=== PATIENT | female | born 1960 | race Caucasian/White ===

== ENCOUNTER 2017-04-04 08:39 | Emergency (ER) | payer OTHER ==
[2017-04-04 08:44] VITALS: BMI 24.7
[2017-04-04 08:48] VITALS: TEMP 97.9; O2SAT 100
[2017-04-04] MEDS ORDERED: Aspirin 325 mg EC Tablets PO STA (08:59)
[2017-04-04 09:35] LABS: BASO % 0.7 % (0.0-2.0); EOS # 0.2 K/uL (0.0-0.7); EOS % 4.7 % (0.0-4.0); LYMPH # 2.1 K/uL (1.0-4.3); LYMPH % 42.4 % (20.0-40.0); MEAN CELL VOLUME 91.6 fL (81.0-99.0); MEAN CORPUSCULAR HEMOGLOBIN 30.3 pg (27.0-31.0); MEAN PLATELET VOLUME 7.8 fL (7.2-11.7); MONO # 0.3 K/uL (0.0-0.8); MONO % 5.9 % (0.0-10.0); NRBC % 0.1 % (0.0-2.0); RED CELL DISTRIBUTION WIDTH 12.8 % (11.5-14.5)
[2017-04-04 09:45] LABS: CHLORIDE 103 mmol/L (98-107)
[2017-04-04 09:46] LABS: POTASSIUM 3.8 mmol/L (3.6-5.2); SODIUM 137 mmol/L (132-148)
[2017-04-04 09:48] LABS: ALB/GLOB RATIO 1.3 (1.0-2.1); ALKALINE PHOSPHATASE 74 U/L (38-126); AST/SGOT 29 U/L (14-36); BILIRUBIN,TOTAL 0.6 mg/dL (0.2-1.3); CARBON DIOXIDE 24 mmol/L (22-30); GFR AFRICAN-AMERICAN > 60; TOTAL PROTEIN 7.8 g/dL (6.3-8.3)
[2017-04-04 09:49] LABS: ALT/SGPT 25 U/L (9-52); BLOOD UREA NITROGEN 17 mg/dL (7-17); CALCIUM 9.3 mg/dl (8.6-10.4); GLUCOSE,RANDOM 112 mg/dL (65-105)
[2017-04-04 10:15] VITALS: RESP 18
--- NOTE | 2017-04-04 10:21 | RAD ---
PROCEDURE: CHEST RADIOGRAPH, 1 VIEW HISTORY: chest pain COMPARISON: 04/30/2016 FINDINGS: LUNGS: Biapical pleural thickening. No focal infiltrate or effusion. PLEURA: No pneumothorax or pleural fluid seen. CARDIOVASCULAR: Normal. OSSEOUS STRUCTURES: No significant abnormalities. VISUALIZED UPPER ABDOMEN: Normal. OTHER FINDINGS: None. IMPRESSION: No active disease.
--- NOTE | 2017-04-04 10:35 | C.PDOC ---
History Of Present Illness 56 y/o female sent from clinic for evaluation of chest pain x4 days. Pain is sharp, left sided and nonradiating. Pt denies SOB, fever, cough, vomiting or any other complaints. Denies history of heart disease, HTN or diabetes. Chief Complaint (Nursing): Chest Pain History Per: Patient History/Exam Limitations: no limitations Onset/Duration Of Symptoms: Days Current Symptoms Are (Timing): Still Present Severity: Moderate Quality: Sharp Modifying Factors: None Alleviating Factors: None Recent travel outside of the [place]: No Past Medical History Reviewed: Historical Data, Nursing Documentation, Vital Signs Vital Signs: Last Vital Signs Temp 97.9 F 04/04/17 08:47 Pulse 80 04/04/17 11:15 Resp 18 04/04/17 11:15 BP 132/74 04/04/17 11:15 Pulse Ox 100 04/04/17 11:15 - Medical History PMH: Arthritis, Hypothyroidism Family History: States: Hypertension - Social History Hx Tobacco Use: No Hx Alcohol Use: No Hx Substance Use: No - Immunization History Hx Tetanus Toxoid Vaccination: No Hx Influenza Vaccination: Yes Hx Pneumococcal Vaccination: No Review Of Systems Except As Marked, All Systems Reviewed And Found Negative. Constitutional: Negative for: Fever Cardiovascular: Positive for: Chest Pain Respiratory: Negative for: Cough, Shortness of Breath Gastrointestinal: Negative for: Vomiting Physical Exam - Physical Exam Appears: Non-toxic, No Acute Distress Skin: Warm, Dry, No Rash Head: Atraumatic, Normacephalic Neck: Normal, Normal ROM, Supple Chest: Symmetrical, No Tenderness Cardiovascular: Rhythm Regular, No Murmur Respiratory: Normal Breath Sounds, No Rales, No Rhonchi, No Wheezing Gastrointestinal/Abdominal: Normal Exam, Soft, No Tenderness Extremity: No Pedal Edema Extremity: Bilateral: Atraumatic Neurological/Psych: Oriented x3, Normal Speech ED Course And Treatment - Laboratory Results Result Diagrams: 04/04/17 09:32 04/04/17 09:32 ECG: Interpreted By Me, Viewed By Me ECG Rhythm: Sinus Rhythm ECG Interpretation: Normal Interpretation Of ECG: Normal axis. Normal intervals. Rate From EC (BPM) O2 Sat by Pulse Oximetry: 100 (RA) Pulse Ox Interpretation: Normal - Radiology CXR: Viewed By Me, Read By Radiologist CXR Interpretation: Yes: No Acute Disease Medical Decision Making Medical Decision Making: Plan: * EKG * CXR * labs * IV fluids * aspirin Disposition - Disposition Referrals: [facility] Ernesto Ham, [Non-Staff] - Disposition: HOME/ ROUTINE Disposition Time: 10:00 Condition: GOOD Additional Instructions: Thank you for letting us take care of you today. Your provider was Dr. Yepez. You were treated for noncardiac chest pain. The emergency medical care you received today was directed at your acute symptoms. If you were prescribed any medication, please fill it and take as directed. It may take several days for your symptoms to resolve. Return to the Emergency Department if your symptoms worsen, do not improve, or if you have any other problems. Please contact your doctor or call one of the physicians/clinics you have been referred to that are listed on the Patient Visit Information form that is included in your discharge packet. Bring any paperwork you were given at discharge with you along with any medications you are taking to your follow up visit. Our treatment cannot replace ongoing medical care by a primary care provider (PCP) outside of the emergency department. Thank you for allowing the [facility] team to be part of your care today. Follow up with your doctor in 2-3 days for re-evaluation. Instructions: Noncardiac Chest Pain (ED) - Clinical Impression Clinical Impression: Non-cardiac chest pain - Scribe Statement The provider has reviewed the documentation as recorded by the Berto Villarreal Provider Attestation: All medical record entries made by the Berto were at my direction and personally dictated by me. I have reviewed the chart and agree that the record accurately reflects my personal performance of the history, physical exam, medical decision making, and the department course for this patient. I have also personally directed, reviewed, and agree with the discharge instructions and disposition.
[2017-04-04 11:16] VITALS: BP 132/74; PULSE 80
--- NOTE | 2017-04-05 14:04 | CARD ---
APPROVED REPORT EKG Measurement Heart [id number] <Conclusion> Normal sinus rhythm Normal ECG
== END 2017-04-04 11:16 | disposition home or self-care (01) ==
LOC: C.ER 08:39
DX: R07.89 Other chest pain (principal)

== ENCOUNTER 2017-05-30 07:25 | Day surgery (SDC) | payer MEDICAID ==
[2017-05-30 08:13] VITALS: BMI 25.3
[2017-05-30 08:29] VITALS: O2SAT 100
[2017-05-30] MEDS ORDERED: Propofol 10 mg/ml Inj (20 ML) ONE ×2 (10:38→10:53)
[2017-05-30] MEDS ORDERED: Phenylephrine 10 mg/ml Inj ONE (10:53)
[2017-05-30 13:41] VITALS: TEMP 97.1
[2017-05-30 14:19] VITALS: RESP 16
[2017-05-30 14:45] VITALS: BP 122/63; PULSE 85
== END 2017-05-30 12:20 | disposition home or self-care (01) ==
LOC: C.ENDO 07:25
PROVIDERS: ATTEND Internal Medicine
DX: D12.5 Benign neoplasm of sigmoid colon (principal); K57.30 Diverticulosis of large intestine without perforation or abscess without bleeding; K64.8 Other hemorrhoids
CPT/HCPCS: 45385; 88305; J2370; J2704

== ENCOUNTER 2018-05-28 06:47 | Emergency (ER) | payer MEDICAID ==
[2018-05-28 06:48] VITALS: BMI 25.3
[2018-05-28 06:56] VITALS: RESP 18
[2018-05-28] MEDS ORDERED: Sodium Chloride 0.9% 1,000 ML IV ONE (07:20)
--- NOTE | 2018-05-28 07:27 | C.PDOC ---
History Of Present Illness 57 y/o female, with PMHx of hysterectomy, presents to ED c/o diffuse abdominal pain associated with n/v/d for the last 2 days. Denies taking any medications for her symptoms. Otherwise, denies fever, chills, urinary symptoms, vaginal discharge, or vaginal bleeding. Time Seen by Provider: 05/28/18 07:16 Chief Complaint (Nursing): Abdominal Pain History Per: Patient History/Exam Limitations: no limitations Past Medical History Reviewed: Historical Data, Nursing Documentation, Vital Signs Vital Signs: Last Vital Signs Temp 98.6 F 05/28/18 06:53 Pulse 106 H 05/28/18 06:53 Resp 18 05/28/18 06:53 BP 113/77 05/28/18 06:53 Pulse Ox 99 05/28/18 07:34 - Medical History PMH: Arthritis, Diverticulitis, Hypothyroidism Denies: Chronic Kidney Disease Family History: States: Hypertension - Social History Hx Tobacco Use: No Hx Alcohol Use: No Hx Substance Use: No - Immunization History Hx Tetanus Toxoid Vaccination: No Hx Influenza Vaccination: Yes Hx Pneumococcal Vaccination: No Review Of Systems Except As Marked, All Systems Reviewed And Found Negative. Constitutional: Negative for: Fever, Chills Gastrointestinal: Positive for: Nausea, Vomiting, Abdominal Pain, Diarrhea. Negative for: Melena, Hematochezia, Hematemesis Genitourinary: Negative for: Dysuria, Frequency, Hematuria, Vaginal Discharge, Vaginal Bleeding Musculoskeletal: Negative for: Back Pain Physical Exam - Physical Exam Appears: Non-toxic, No Acute Distress Skin: Normal Color, Warm, Dry Head: Atraumatic, Normacephalic Eye(s): bilateral: Normal Inspection Oral Mucosa: Moist Neck: Normal ROM, Supple Cardiovascular: Rhythm Regular Respiratory: Normal Breath Sounds, No Rales, No Rhonchi, No Wheezing Gastrointestinal/Abdominal: Bowel Sounds, Soft, Tenderness (diffuse), No Guarding, No Rebound Back: No CVA Tenderness Extremity: Normal ROM Neurological/Psych: Oriented x3, Normal Speech ED Course And Treatment - Laboratory Results Result Diagrams: 05/28/18 07:35 05/28/18 07:35 O2 Sat by Pulse Oximetry: 99 Medical Decision Making Medical Decision Making: Impression: Abdominal pain Plan: Abd & Pelvis CT Blood work Urinalysis Pepcid, Toradol, Zofran, IV fuids 1145 am - patient state improvement. No further pain. Will discharge home to follow up with pmd within 2 days. advised to return to eR if symptoms worsens or progress Disposition Counseled Patient/Family Regarding: Studies Performed, Diagnosis - Disposition Referrals: Dudley Benitez MD [Family Provider] - Disposition: HOME/ ROUTINE Disposition Time: 11:47 Condition: IMPROVED Additional Instructions: follow up with your doctor or medical clinic within 2 days call to make an appointment continue your home medications return to ER if symptoms worsens or progress Prescriptions: Ciprofloxacin HCl [Cipro] 500 mg PO BID #20 tab Famotidine [Pepcid] 20 mg PO BID #20 tab Metronidazole [Flagyl] 500 mg PO BID #20 tablet Naproxen [Naprosyn] 500 mg PO BID PRN #16 tab PRN Reason: Pain, Moderate (4-7) Ondansetron ODT [Zofran ODT] 4 mg PO TID PRN #12 odt PRN Reason: Nausea/Vomiting Instructions: Inflammatory Bowel Disease, Acute Abdomen (Belly Pain), Adult (DC ) Forms: Gen Discharge Inst Citizen Of [place], [facility] (Citizen [place]) Print Language: SWEDISH - Clinical Impression Clinical Impression: Abdominal pain - Scribe Statement The provider has reviewed the documentation as recorded by the Scribe KP All medical record entries made by the Scribe were at my direction and personally dictated by me. I have reviewed the chart and agree that the record accurately reflects my personal performance of the history, physical exam, medical decision making, and the department course for this patient. I have also personally directed, reviewed, and agree with the discharge instructions and disposition.
[2018-05-28] MEDS ORDERED: Iohexol 240 (50 ml) ONE (07:37)
[2018-05-28] MEDS ORDERED: Sodium Chloride 0.9% 1,000 ML ONE (07:38)
[2018-05-28 07:40] LABS: BASO % 0.4 % (0.0-2.0); EOS # 0.1 K/uL (0.0-0.7); EOS % 0.8 % (0.0-4.0); HEMOGLOBIN 14.9 g/dL (11.0-16.0); LYMPH # 2.4 K/uL (1.0-4.3); LYMPH % 28.9 % (20.0-40.0); MEAN CELL VOLUME 91.1 fL (81.0-99.0); MEAN CORPUSCULAR HEMOGLOBIN 31.2 pg (27.0-31.0); MEAN CORPUSCULAR HGB CONC 34.2 g/dL (33.0-37.0); MEAN PLATELET VOLUME 8.2 fL (7.2-11.7); MONO # 0.7 K/uL (0.0-0.8); MONO % 8.2 % (0.0-10.0); NEUT # 5.2 K/uL (1.8-7.0); NEUT % 61.7 % (50.0-75.0); RBC 4.77 Mil/uL (3.80-5.20); RED CELL DISTRIBUTION WIDTH 12.7 % (11.5-14.5); WHITE BLOOD COUNT 8.4 K/uL (4.8-10.8)
[2018-05-28 07:54] LABS: SQUAMOUS EPITHIAL 1 /hpf (0-5); URINE BACTERIA RARE (<OCC); URINE BILIRUBIN NEGATIVE (NEGATIVE); URINE BLOOD NEGATIVE (NEGATIVE); URINE CLARITY Clear (Clear); URINE COLOR Yellow (YELLOW); URINE GLUCOSE (UA) NORMAL (Normal); URINE LEUKOCYTE ESTERASE NEG Leu/uL (Negative); URINE PROTEIN NEGATIVE (NEGATIVE); URINE UROBILINOGEN NORMAL mg/dL (0.2-1.0)
[2018-05-28 07:59] LABS: ALB/GLOB RATIO 1.4 (1.0-2.1); ALBUMIN 4.4 g/dL (3.5-5.0); ALT/SGPT 34 U/L (9-52); AST/SGOT 24 U/L (14-36); BLOOD UREA NITROGEN 12 mg/dL (7-17); CALCIUM 9.6 mg/dl (8.6-10.4); GFR AFRICAN-AMERICAN > 60; GFR NON-AFRICAN AMERICAN > 60; LIPASE 92 U/L (23-300)
[2018-05-28] MEDS ORDERED: Iodixanol 320 MG/ML 100 ML BOTTLE IV ONE (09:54)
--- NOTE | 2018-05-28 11:21 | CT ---
Date of service: 05/28/2018 PROCEDURE: CT Abdomen and Pelvis with contrast HISTORY: abd pain COMPARISON: Abdomen pelvis CT examination with contrast 12/10/2016. TECHNIQUE: Contrast dose: Visipaque 320, 100 cc Radiation dose: Total exam DLP = 412.08 mGy-cm. This CT exam was performed using one or more of the following dose reduction techniques: Automated exposure control, adjustment of the mA and/or kV according to patient size, and/or use of iterative reconstruction technique. FINDINGS: LOWER THORAX: Unremarkable. LIVER: Unremarkable. No gross lesion or ductal dilatation. GALLBLADDER AND BILE DUCTS: Unremarkable. PANCREAS: Unremarkable. No gross lesion or ductal dilatation. SPLEEN: Unremarkable. ADRENALS: Unremarkable. No mass. KIDNEYS AND URETERS: Unremarkable. No hydronephrosis. No solid mass. VASCULATURE: Unremarkable. No aortic aneurysm. BOWEL: The entire ileum appears thick-walled and possibly part of the distal the jejunum with mild right lower quadrant and pelvic ascites present. No free intrarenal gas. Consider segmental enteritis from potential infectious or inflammatory disease including Crohn's disease. Ischemia not completely excluded however the abdominal aorta appears well opacified as well as the superior mesenteric artery and celiac artery. Nonacute sigmoid diverticular changes are identified [id number] fecal loading is seen in various large-bowel segments. APPENDIX: Normal appendix. PERITONEUM: No free intra peritoneal gas. Ascites as discussed in bowel section. LYMPH NODES: Unremarkable. No enlarged lymph nodes. BLADDER: Unremarkable. REPRODUCTIVE: Prior hysterectomy reiterated. BONES: No acute fracture. OTHER FINDINGS: None. IMPRESSION: Extensive segmental enteritis affecting the distal jejunal through entire ileal small bowel segments with limited abdominal and pelvic ascites present. Consider infectious or inflammatory causes with ischemia not completely excluded although central arterial vascularity in the abdomen appears unremarkable overall. Nonacute sigmoid diverticulosis. Prior hysterectomy reiterated.
[2018-05-28 12:20] VITALS: BP 111/73; PULSE 71; TEMP 98.1; O2SAT 100
== END 2018-05-28 12:24 | disposition home or self-care (01) ==
LOC: C.ER 06:47
DX: R10.9 Unspecified abdominal pain (principal); Z90.710 Acquired absence of both cervix and uterus
CPT/HCPCS: 74177; 80053; 81001; 83690; 85025; 96374; 96375; 99285; J1885; J2405; J7030; Q9967